=== PATIENT | male | born 1970 | race Two or more races ===

== ENCOUNTER 2017-11-03 18:49 | Emergency (ER) | payer BC ==
[~2017-11-03] VITALS: Ht 149.9 cm; Wt 59.0 kg
[2017-11-03 19:26] VITALS: BP 131/78
[2017-11-03] MEDS ORDERED: Lidocaine 1% MPF 10mg/ml 5ml IM ONE (19:45)
[2017-11-03] MEDS ORDERED: Tylenol #3 tab (300mg/30mg) ORAL ONE (19:45)
--- NOTE | 2017-11-03 19:51 | Emergency Room Report ---
History of Present Illness General Chief Complaint: Laceration Source: Patient Present Illness HPI 46-year-old male patient presents ER complaining of laceration on left hand. Patient reports that he was cutting some fruit when he cut his left hand. Patient reports he is right-hand dominant. Reports bleeding from site of injury. Denies loss of sensation in hand or loss of range of motion. Denies other acute symptoms at this time. Reports drank a few beers earlier. Does not note tetanus vaccination status. Allergies: Coded Allergies: No Known Allergies (Unverified , 11/03/17) Patient History Past Medical History: see triage record Reviewed Nursing Documentation: PMH: Agreed; PSxH: Agreed Nursing Documentation-PMH Past Medical History: No Stated History Review of Systems All Other Systems: negative except mentioned in HPI Physical Exam Vital Signs Date Time Temp Pulse Resp B/P (MAP) Pulse Ox O2 Delivery O2 Flow Rate FiO2 11/03/17 19:21 98.0 76 16 131/78 99 Room Air 98.1 Sp02 EP Interpretation: reviewed, normal General Appearance: well appearing, no apparent distress, alert, GCS 15, non- toxic Head: normocephalic, atraumatic Eyes: bilateral eye normal inspection, bilateral eye PERRL ENT: hearing grossly normal, normal pharynx, no angioedema, normal voice, uvula midline, moist mucus membranes Neck: full range of motion Respiratory: lungs clear, normal breath sounds, no rhonchi, no respiratory distress, no accessory muscle use, no wheezing, speaking full sentences Cardiovascular #1: regular rate, rhythm, no edema Cardiovascular #2: 2+ radial (R), 2+ radial (L) Gastrointestinal: non tender, soft, no mass, non-distended, no guarding, no rebound Genitourinary: no CVA tenderness Musculoskeletal: back normal, digits/nails normal, gait/station normal, normal range of motion - full flexion and extension of DIP PIP and MCP joints of left index finger., non-tender Neurologic: alert, oriented x3, responsive, motor strength/tone normal, sensory intact Psychiatric: mood/affect normal Skin: laceration - 1 cm laceration on the dorsum of left hand proximal to MCP joint, superficial, linear, bleeding Procedures Laceration/Wound Repair Laceration/Wound Repair : Consent: Verbal Wound Location: upper extremity - left hand Wound's Depth, Shape: superficial Wound Length (cm): 1 Wound Explored: contaminated Irrigated w/ Saline (ccs): 10 Betadine Prep?: Yes Anesthesia: 1% Lidocaine Volume Anesthetic (ccs): 1 Wound Debrided: extensive Wound Repaired With: sutures Suture Size/Type: 5:0, other - ethilon Number of Sutures: 2 Layer Closure?: No Sterile Dressing Applied?: Yes Splint Applied?: No Sling Applied?: No Patient Tolerated: Well Complications: None Medical Decision Making PA Attestation Dr. Jesus is my supervising Physician whom patient management has been discussed with. Diagnostic Impression: Primary Impression: Laceration ER Course Pt presents to ED c/o laceration on dorsum of left hand. DDX considered but are not limited to laceration, abrasion, contusion, cellulitis. VITAL SIGNS are WNL, patient is afebrile ED INTERVENTIONS: Does not know tetanus status, provided TDAP in ER. Full ROM of finger and hand, low suspicion for tendon injury. Does not require xray at this time. Wound was cleaned and irrigated using normal saline. Local block using Lidocaine 1%. Laceration repaired. 2 sutures placed. Wound cleaned and covered using sterile dressing and Bacitracin. Will provide abx to home to prevent infection. Patient tolerated procedure well. Patient reports understanding and agreement to treatment plan. Keep wound clean and dry. Work note provided for 1 day. Do not drink alcohol and use a knife. DISCHARGE: Rx provided for Keflex Rx provided for Ibuprofen At this time pt is stable for d/c to home. Patient resting comfortably, in no acute distress, nontoxic appearing, talking without difficulty. Will provide with patient care instructions and any necessary prescriptions. Patient to take medication as instructed. Care plan and follow-up instructions provided. Work note provided to patient. Patient questions asked and answered. Patient instructed to follow-up with primary care provider in 1-3 days for wound check and 7-10 days for removal of sutures ER precautions given. Patient instructed to return to ER immediately for any new or worsening of symptoms. - Please note that this Emergency Department Report was dictated using [employer] tube molder technology software, occasionally this can lead to erroneous entry secondary to interpretation by the dictation equipment. Last Vital Signs Date Time Temp Pulse Resp B/P (MAP) Pulse Ox O2 Delivery O2 Flow Rate FiO2 11/03/17 19:21 98.0 76 16 131/78 99 Room Air 98.1 Disposition: HOME, SELF-CARE Condition: Stable Scripts Ibuprofen* (MOTRIN*) 600 Mg Tablet 600 MG ORAL Q6H PRN for For Pain, #30 TAB Prov: Baldomero Hemphill 11/03/17 Cephalexin* (KEFLEX*) 500 Mg Capsule 500 MG ORAL EVERY 12 HOURS, #14 CAP 0 Refills Prov: Baldomero Hemphill 11/03/17 Patient Instructions: Laceration Care, Adult Additional Instructions: Patient instructed to follow-up with primary care provider in 1-3 days for wound check and 7-10 days for removal of sutures. Take medications as directed. Keep wound clean and dry. Patient questions asked and answered. ER precautions given, patient instructed to return to ER immediately for any new or worsening of symptoms. Baldomero Hemphill Nov 03, 2017 19:51
[2017-11-03] MEDS ORDERED: Tetanus/Diptheria/Pertussis Vaccine 0.5ml Syr IM ONE (20:00)
[2017-11-03] MEDS ORDERED: Bacitracin Oint UD TOPIC ONE (20:15)
[2017-11-03] MEDS ORDERED: CEPHALEXIN500 MG ORAL (20:21)
[2017-11-03] MEDS ORDERED: IBUPROFEN600 MG ORAL (20:21)
[2017-11-03 20:36] VITALS: BP 0/0
== END 2017-11-03 20:36 | disposition home or self-care (01) ==
LOC: EMR 20:05
DX: S61.412A Laceration without foreign body of left hand, initial encounter (principal); W26.0XXA Contact with knife, initial encounter; Y92.009 Unspecified place in unspecified non-institutional (private) residence as the place of occurrence of the external cause; Z23 Encounter for immunization
CPT/HCPCS: 90471; 90715; 96372; 99284

== ENCOUNTER 2017-11-12 09:20 | Emergency (ER) | payer BC ==
[~2017-11-12] VITALS: Ht 152.4 cm; Wt 59.0 kg
[~2017-11-12 09:20] MED LIST: CEPHALEXIN500 MG ORAL; IBUPROFEN600 MG ORAL
[2017-11-12 09:50] VITALS: BP 131/80
--- NOTE | 2017-11-12 10:07 | Emergency Room Report ---
History of Present Illness General Chief Complaint: Wound Recheck/Suture Removal Source: Patient Present Illness HPI 46-year-old male here for removal of stitches to dorsal aspect of proximal aspect of the left index finger Denies fever, chills, pain, pus from finger sutures were placed approximately 8 days ago. Patient had 2 stitches placed Allergies: Coded Allergies: No Known Allergies (Unverified , 11/03/17) Patient History Past Medical History: none Past Surgical History: none Pertinent Family History: none Social History: Denies: smoking, alcohol use, drug use Immunizations: UTD Reviewed Nursing Documentation: PMH: Agreed; PSxH: Agreed Nursing Documentation-PMH Past Medical History: No Stated History Review of Systems All Other Systems: negative except mentioned in HPI Physical Exam Vital Signs Date Time Temp Pulse Resp B/P (MAP) Pulse Ox O2 Delivery O2 Flow Rate FiO2 11/12/17 09:35 98.2 60 16 131/80 96 Room Air 98.2 Sp02 EP Interpretation: reviewed, normal General Appearance: normal inspection, well appearing, no apparent distress, alert, GCS 15, non-toxic Head: normocephalic, atraumatic Eyes: bilateral eye PERRL, bilateral eye EOMI ENT: normal ENT inspection, hearing grossly normal, normal pharynx, no angioedema, normal voice, TMs + canals normal, uvula midline, moist mucus membranes Neck: normal inspection, full range of motion, supple, thyroid normal, no meningismus, no bony tend Respiratory: normal inspection, lungs clear, normal breath sounds, no rhonchi, no respiratory distress, no retraction, no accessory muscle use, no wheezing, speaking full sentences Cardiovascular #1: regular rate, rhythm, no edema, no JVD, normal capillary refill Gastrointestinal: normal inspection, normal bowel sounds, non tender, soft, no mass, no peritonitis, non-distended, no guarding, no hernia, no pulsatile mass Genitourinary: no CVA tenderness Musculoskeletal: normal inspection, back normal, normal range of motion, no calf tenderness, pelvis stable, Neva's Sign negative, other - left hand: 2 stitches to left index finger well-healed wound. No tenderness Neurologic: normal inspection, alert, oriented x3, responsive, field contact person III-XII nml as tested, motor strength/tone normal, cerebellar normal, normal gait, speech normal Psychiatric: normal inspection, judgement/insight normal, mood/affect normal, no suicidal/homicidal ideation, no delusions Skin: normal inspection, normal color, no rash Lymphatic: normal inspection, no adenopathy Medical Decision Making Diagnostic Impression: Primary Impression: Encounter for dressing change or suture removal ER Course VSS, afebrile 2 sutures removed Wound holding together DC home ER course: Patient has remained stable during ED stay. Disposition: Patient is to be discharged to home. Strict return precautions discussed with patient such as fever, chills, worsening/severe pain, nausea, vomiting, which may indicate severe illness. Patient verbalizes understanding and agrees with plan. Please note that this Emergency Department Report was dictated using [employer] engineer technology software, occasionally this can lead to erroneous entry secondary to interpretation by the dictation equipment Last Vital Signs Date Time Temp Pulse Resp B/P (MAP) Pulse Ox O2 Delivery O2 Flow Rate FiO2 11/12/17 09:50 98.2 60 16 131/80 96 Room Air 98.2 Status: improved Disposition: HOME, SELF-CARE DINO HUSTON M.D. Nov 12, 2017 10:07
[2017-11-12 10:09] VITALS: BP 131/80
== END 2017-11-12 10:30 | disposition home or self-care (01) ==
LOC: EMR 10:23
DX: Z48.02 Encounter for removal of sutures (principal)
CPT/HCPCS: 99282